=== PATIENT | female | born 1945 | race Caucasian/White ===

== ENCOUNTER 2016-12-25 13:23 | Emergency (ER) | payer MEDICARE, OTHER ==
[~2016-12-25] VITALS: Ht 165.1 cm; Wt 59.0 kg
[~2016-12-25 13:23] MED LIST: ADVANCED FIBER COMPL PO; ALEVE220 M2 PO; ASPIRIN81 MG PO; AUGMENTIN875TAB PO; B-1250 MCG PO; B12 LIQUID PO; BACLOFEN10 MG PO; CEFUROXIME500 MG PO; CIPROFLOXACN500 MG PO; CITRACAL + D3 MAXIMU PO; DIFLUCAN150 MG PO; ESTRACE2 M1 PO; FLEXERIL5 M1 PO; FLONASE NASAL50 MCG; FLORASTO1 PO; GARLIC2000 MG PO; GINKGO BILOB60 MG PO; GLUCOSAMINE1 TA1; HYDROCORTISO2.51 EX; LEVAQUIN750 MG PO; MEDDOSEPAK PO; MELOXICAM15 MG PO; METRONIDAZOL500 MG PO; MULTI VIT PO; OMEGA-3 FISH1000 MG PO; POTASSIUM GLUCO2 MEQ PO; PREDNISONE10 MG PO; PREVNAR 13 IM; PROTONIX40 M1 IV; PROTONIX40 M2 PO; RED YEAS1 PO; SUPER B-50 COMPLEX PO; VITAMIN E400 UNIT PO; XANAX0.25 MG PO; XGEVA SC
[2016-12-25] MEDS ORDERED: EC-NAPROSYN500 MG PO (14:00)
[2016-12-25 14:10] VITALS: BP 135/78
== END 2016-12-25 14:15 | disposition home or self-care (01) ==
LOC: ED 13:23
DX: M70.22 Olecranon bursitis, left elbow (principal); M41.9 Scoliosis, unspecified; M19.90 Unspecified osteoarthritis, unspecified site; M81.0 Age-related osteoporosis without current pathological fracture; F17.210 Nicotine dependence, cigarettes, uncomplicated

== ENCOUNTER 2017-07-28 12:54 | Emergency (ER) | payer MEDICARE, OTHER ==
[~2017-07-28] VITALS: Ht 165.1 cm; Wt 50.0 kg
[~2017-07-28 12:54] MED LIST changes: +EC-NAPROSYN500 MG PO; -GLUCOSAMINE1 TA1; +GLUCOSAMINE1 TA1 PO
[2017-07-28 14:26] LABS: HEMATOCRIT 48.1 % (37.0-47.0); HEMOGLOBIN 16.1 g/dl (12.0-16.0); IMMATURE GRANULOCYTES 0.5 % (0.0-1.0); MEAN CELL VOLUME 102.1 fL CALC (80.0-100.0); MEAN CORPUSCULAR HGB 34.2 pG CALC (26.0-32.0); MEAN CORPUSCULAR HGB CONC 33.5 g/L CALC (32.0-36.0); NEUT# 9.88 thou/uL (2.00-7.15); RED BLOOD COUNT 4.71 mill/uL (4.20-5.60); RED CELL DISTRI WIDTH 12.5 % (11.5-15.5)
[2017-07-28] MEDS ORDERED: TIZANIDINE HCL2 M1 PO (15:07)
[2017-07-28 15:17] LABS: ANION GAP 15 (6-22 (CALC)); BUN 16 mg/dL (8-23); BUN/CREATININE RATIO 29 (12-20 (CALC)); CALCIUM 10.2 mg/dL (8.4-10.2); CARBON DIOXIDE 29 mmol/l (22-30); CHLORIDE 103 mmol/l (95-108); CREATININE 0.5 mg/dL (0.5-1.0); GFR > 60 ML/MIN (>=60 (CALC)); GFR FOR AFR.AMER. > 60 ML/MIN (>=60 (CALC)); GLUCOSE 118 mg/dL (82-115); POTASSIUM 4.5 mmol/l (3.5-5.1); SODIUM 142 mmol/l (137-146)
[2017-07-28 15:56] VITALS: BP 118/64
== END 2017-07-28 15:55 | disposition home or self-care (01) ==
LOC: ED 12:54
PROVIDERS: Family Medicine
DX: R07.89 Other chest pain (principal); W01.198A Fall on same level from slipping, tripping and stumbling with subsequent striking against other object, initial encounter; Y93.89 Activity, other specified; Y92.007 Garden or yard of unspecified non-institutional (private) residence as the place of occurrence of the external cause

== ENCOUNTER 2017-08-22 06:50 | Emergency (ER) | payer MEDICARE, OTHER ==
[~2017-08-22] VITALS: Ht 165.1 cm; Wt 70.0 kg
[~2017-08-22 06:50] MED LIST changes: +TIZANIDINE HCL2 M1 PO
[2017-08-22 07:10] VITALS: BP 141/72
[2017-08-22] MEDS ORDERED: RED YEAST RICE600 MG PO (07:25)
[2017-08-22] MEDS ORDERED: SLO-NIACIN500 MG PO (07:29)
[2017-08-22 08:05] LABS: HEMATOCRIT 52.3 % (37.0-47.0); HEMOGLOBIN 17.6 g/dl (12.0-16.0); IMMATURE GRANULOCYTES 0.2 % (0.0-1.0); MEAN CELL VOLUME 102.3 fL CALC (80.0-100.0); MEAN CORPUSCULAR HGB 34.4 pG CALC (26.0-32.0); MEAN CORPUSCULAR HGB CONC 33.7 g/L CALC (32.0-36.0); NEUT# 5.31 thou/uL (2.00-7.15); RED BLOOD COUNT 5.11 mill/uL (4.20-5.60); RED CELL DISTRI WIDTH 12.9 % (11.5-15.5)
[2017-08-22 08:21] LABS: ALBUMIN 4.5 g/dL (3.2-5.0); ALKALINE PHOSPHATASE 102 u/l (38-126); ANION GAP 16 (6-22 (CALC)); BILIRUBIN, TOTAL 0.8 mg/dL (0.0-1.4); BUN 12 mg/dL (8-23); BUN/CREATININE RATIO 22 (12-20 (CALC)); CARBON DIOXIDE 29 mmol/l (22-30); CHLORIDE 103 mmol/l (95-108); CREATININE 0.5 mg/dL (0.5-1.0); GFR > 60 ML/MIN (>=60 (CALC)); GFR FOR AFR.AMER. > 60 ML/MIN (>=60 (CALC)); LIPASE 62 u/l (23-300); POTASSIUM 4.5 mmol/l (3.5-5.1); SGOT/AST 33 u/l (9-36); SGPT/ALT 23 u/l (11-66); SODIUM 143 mmol/l (137-146); TOTAL PROTEIN 7.6 g/dL (6.3-8.2)
[2017-08-22 08:38] LABS: URINE BILIRUBIN - DIPSTICK NEGATIVE (NEGATIVE); URINE BLOOD DIPSTICK NEGATIVE (NEGATIVE); URINE COLOR YELLOW; URINE GLUCOSE - DIPSTICK NEGATIVE (NEGATIVE); URINE KETONE NEGATIVE (NEGATIVE); URINE LEUK ESTERASE NEGATIVE (NEGATIVE); URINE NITRITE - DIPSTICK NEGATIVE (Negative); URINE PROTEIN - DIPSTICK NEGATIVE (NEG-TRACE); URINE UROBILINOGEN - DIPSTICK 0.2 E.U./dL (0.2)
[2017-08-22 08:39] LABS: URINE CLARITY CLEAR
[2017-08-22] MEDS ORDERED: MOTRIN400 MG PO (09:19)
== END 2017-08-22 09:31 | disposition home or self-care (01) ==
LOC: ED 06:50
PROVIDERS: Family Medicine
DX: R07.81 Pleurodynia (principal); M19.90 Unspecified osteoarthritis, unspecified site; J98.4 Other disorders of lung; F17.210 Nicotine dependence, cigarettes, uncomplicated
CPT/HCPCS: Q9967

== ENCOUNTER 2018-05-23 06:27 | Day surgery (SDC) | payer MEDICARE, OTHER ==
[~2018-05-23 06:27] MED LIST changes: +FISH OIL1 CAP PO; +MOTRIN400 MG PO; +MULTI FOR HER PO; +PROAIR HFA108 MCG/AC PO; +PROBIOTI2 PO; +RED YEAST RICE600 MG PO; +SLO-NIACIN500 MG PO; +SYMBICORT1 AE1 IN
[2018-05-23] MEDS ORDERED: TYLENOL325 MG PO (07:02)
[2018-05-23 08:01] VITALS: BP 135/64
== END 2018-05-23 08:40 | disposition home or self-care (01) ==
LOC: ENDO 06:27 → ORM 07:00 → ENDO 07:00
PROVIDERS: ATTEND Surgery
PROC: 0DJD8ZZ Inspection of Lower Intestinal Tract, Via Natural or Artificial Opening Endoscopic (ICD-10-PCS; principal; 2018-05-23)
PROC: 0DJ08ZZ Inspection of Upper Intestinal Tract, Via Natural or Artificial Opening Endoscopic (ICD-10-PCS; 2018-05-23)
DX: Z12.11 Encounter for screening for malignant neoplasm of colon (principal); K21.9 Gastro-esophageal reflux disease without esophagitis; Z90.49 Acquired absence of other specified parts of digestive tract
CPT/HCPCS: 43235; G0121

== ENCOUNTER 2021-01-30 17:55 | Emergency (ER) | payer MEDICARE, OTHER ==
[~2021-01-30] VITALS: Ht 162.6 cm; Wt 64.0 kg
[~2021-01-30 17:55] MED LIST changes: +TYLENOL325 MG PO
[2021-01-30] MEDS ORDERED: SINGULAIR10 MG PO (18:44)
[2021-01-30] MEDS ORDERED: BUSPIRONE5 MG PO (18:45)
[2021-01-30] MEDS ORDERED: SPIRIVA HANDIHALER IN (18:46)
[2021-01-30 20:05] LABS: HEMOGLOBIN 13.5 g/dl (12.0-16.0); IMMATURE GRANULOCYTES 0.1 % (0.0-5.0); MEAN CELL VOLUME 99.8 fL CALC (80.0-100.0); MEAN CORPUSCULAR HGB 32.8 pG CALC (26.0-32.0); MEAN CORPUSCULAR HGB CONC 32.9 g/dL CAL (32.0-36.0); NEUT# 3.94 thou/uL (2.00-7.15); RED BLOOD COUNT 4.11 mill/uL (4.20-5.60); RED CELL DISTRI WIDTH 12.5 % (11.5-15.5)
[2021-01-30 20:21] LABS: ALBUMIN 4.1 g/dL (3.2-5.0); ALKALINE PHOSPHATASE 70 u/l (38-126); AMYLASE 92 u/l (30-110); ANION GAP 13 (6-22 (CALC)); BILIRUBIN, TOTAL 0.4 mg/dL (0.0-1.4); BUN 23 mg/dL (8-23); BUN/CREATININE RATIO 35 (12-20 (CALC)); CARBON DIOXIDE 25 mmol/l (22-30); CHLORIDE 103 mmol/l (95-108); CPK 114 u/l (30-165); CREATININE 0.7 mg/dL (0.5-1.0); GFR > 60 ML/MIN (>=60 (CALC)); GFR FOR AFR.AMER. > 60 ML/MIN (>=60 (CALC)); LIPASE 71 u/l (23-300); POTASSIUM 4.5 mmol/l (3.5-5.1); SGOT/AST 50 u/l (9-36); SODIUM 136 mmol/l (137-146); TOTAL PROTEIN 7.5 g/dL (6.3-8.2)
[2021-01-30 21:18] VITALS: BP 160/71
== END 2021-01-30 21:29 | disposition home or self-care (01) ==
LOC: ED 17:55
PROVIDERS: Family Medicine
DX: J43.9 Emphysema, unspecified (principal); K21.9 Gastro-esophageal reflux disease without esophagitis; F17.200 Nicotine dependence, unspecified, uncomplicated

== ENCOUNTER 2021-06-16 14:53 | Emergency (ER) | payer MEDICARE, OTHER ==
[~2021-06-16] VITALS: Ht 162.6 cm; Wt 75.0 kg
[~2021-06-16 14:53] MED LIST changes: +BUSPIRONE5 MG PO; +SINGULAIR10 MG PO; +SPIRIVA HANDIHALER IN
[2021-06-16 19:45] VITALS: BP 145/79
== END 2021-06-16 19:45 | disposition home or self-care (01) ==
LOC: ED 14:53
DX: S32.592A Other specified fracture of left pubis, initial encounter for closed fracture (principal); X58.XXXA Exposure to other specified factors, initial encounter

== ENCOUNTER 2021-06-20 10:43 | Observation (INO) | payer MEDICARE, OTHER ==
[~2021-06-20] VITALS: Ht 160 cm; Wt 75.0 kg
[2021-06-20] MEDS ORDERED: ALPRAZOLAM0.25 MG PO (11:33)
[2021-06-20] MEDS ORDERED: PROAIR HFA108 MCG/AC IN (11:34)
[2021-06-20] MEDS ORDERED: MULTI VIT PO (11:36)
[2021-06-20] MEDS ORDERED: TRAMADOL HYDROC50 M1 PO (11:37)
[2021-06-20 12:33] LABS: HEMATOCRIT 39.9 % (37.0-47.0); HEMOGLOBIN 13.2 g/dl (12.0-16.0); IMMATURE GRANULOCYTES 0.1 % (0.0-5.0); MEAN CELL VOLUME 100.8 fL CALC (80.0-100.0); MEAN CORPUSCULAR HGB 33.3 pG CALC (26.0-32.0); MEAN CORPUSCULAR HGB CONC 33.1 g/dL CAL (32.0-36.0); NEUT# 5.44 thou/uL (2.00-7.15); RED BLOOD COUNT 3.96 mill/uL (4.20-5.60); RED CELL DISTRI WIDTH 12.3 % (11.5-15.5)
[2021-06-20 12:47] LABS: ALBUMIN 3.6 g/dL (3.2-5.0); ALKALINE PHOSPHATASE 135 u/l (38-126); ANION GAP 9 (6-22 (CALC)); BILIRUBIN, TOTAL 0.4 mg/dL (0.0-1.4); BUN 12 mg/dL (8-23); BUN/CREATININE RATIO 23 (12-20 (CALC)); CARBON DIOXIDE 33 mmol/l (22-30); CHLORIDE 102 mmol/l (95-108); CREATININE 0.5 mg/dL (0.5-1.0); GFR > 60 ML/MIN (>=60 (CALC)); GFR FOR AFR.AMER. > 60 ML/MIN (>=60 (CALC)); POTASSIUM 3.9 mmol/l (3.5-5.1); SGOT/AST 25 u/l (9-36); SODIUM 139 mmol/l (137-146); TOTAL PROTEIN 7.1 g/dL (6.3-8.2)
[2021-06-20 13:38] LABS: URINE BILIRUBIN - DIPSTICK NEGATIVE (NEGATIVE); URINE BLOOD DIPSTICK NEGATIVE (NEGATIVE); URINE COLOR YELLOW; URINE GLUCOSE - DIPSTICK NEGATIVE (NEGATIVE); URINE KETONE NEGATIVE (NEGATIVE); URINE LEUK ESTERASE NEGATIVE (NEGATIVE); URINE PROTEIN - DIPSTICK NEGATIVE (NEG-TRACE); URINE UROBILINOGEN - DIPSTICK 0.2 E.U./dL (0.2)
[2021-06-20 13:40] LABS: URINE NITRITE - DIPSTICK NEGATIVE (Negative)
[2021-06-20 14:57] VITALS: BP 133/64
[2021-06-20 19:30] VITALS: BP 106/51
[2021-06-21 04:00] VITALS: BP 124/52
[2021-06-21 05:52] LABS: HEMOGLOBIN 12.5 g/dl (12.0-16.0); MEAN CORPUSCULAR HGB 32.9 pG CALC (26.0-32.0); MEAN CORPUSCULAR HGB CONC 32.9 g/dL CAL (32.0-36.0); RED BLOOD COUNT 3.8 mill/uL (4.20-5.60); RED CELL DISTRI WIDTH 12.1 % (11.5-15.5)
[2021-06-21 06:07] LABS: ANION GAP 8 (6-22 (CALC)); BUN 18 mg/dL (8-23); BUN/CREATININE RATIO 31 (12-20 (CALC)); CARBON DIOXIDE 31 mmol/l (22-30); CHLORIDE 103 mmol/l (95-108); CREATININE 0.6 mg/dL (0.5-1.0); GFR > 60 ML/MIN (>=60 (CALC)); GFR FOR AFR.AMER. > 60 ML/MIN (>=60 (CALC)); MAGNESIUM 1.7 mg/dL (1.6-2.3); POTASSIUM 4.5 mmol/l (3.5-5.1); SODIUM 138 mmol/l (137-146)
[2021-06-21 07:51] VITALS: BP 139/65
[2021-06-21 07:52] VITALS: BP 125/63
[2021-06-21 10:47] VITALS: BP 135/74
[2021-06-21 14:07] VITALS: BP 124/79
[2021-06-21 19:00] VITALS: BP 121/68
[2021-06-22 04:00] VITALS: BP 103/65
[2021-06-22 08:00] VITALS: BP 97/85
[2021-06-22] MEDS ORDERED: HYDROCO/APAP1 TA9 PO (10:51)
[2021-06-22] MEDS ORDERED: LYRICA50 MG PO (10:51)
== END 2021-06-22 14:35 ==
LOC: ED 10:43 → ED-I 12:50 → ED 14:22 → MS2 14:23
PROVIDERS: Family Medicine; ADMIT Hospitalist; ATTEND Hospitalist
DX: M25.551 Pain in right hip (principal); J43.9 Emphysema, unspecified; F41.9 Anxiety disorder, unspecified; K21.9 Gastro-esophageal reflux disease without esophagitis; M81.0 Age-related osteoporosis without current pathological fracture; M19.90 Unspecified osteoarthritis, unspecified site; Z20.822 Contact with and (suspected) exposure to COVID-19
CPT/HCPCS: J1650

== ENCOUNTER 2022-10-28 18:27 | Emergency (ER) | payer MEDICARE, OTHER ==
[2022-10-28] VITALS (14 sets, daily range): BP systolic 129–173; BP diastolic 60–92
[~2022-10-28] VITALS: Ht 160 cm; Wt 69.8 kg
[~2022-10-28 18:27] MED LIST changes: +ALPRAZOLAM0.25 MG PO; +HYDROCO/APAP1 TA9 PO; +LYRICA50 MG PO; +PROAIR HFA108 MCG/AC IN; +TRAMADOL HYDROC50 M1 PO
[2022-10-28] MEDS ORDERED: ULTRAM50 MG PO (21:54)
== END 2022-10-28 22:28 | disposition home or self-care (01) ==
LOC: ED 18:27
DX: S82.092A Other fracture of left patella, initial encounter for closed fracture (principal); W01.0XXA Fall on same level from slipping, tripping and stumbling without subsequent striking against object, initial encounter; Y92.009 Unspecified place in unspecified non-institutional (private) residence as the place of occurrence of the external cause

== ENCOUNTER 2023-01-18 07:56 | Emergency (ER) | payer MEDICARE, OTHER ==
[2023-01-18] VITALS (11 sets, daily range): BP systolic 133–187; BP diastolic 57–94
[~2023-01-18] VITALS: Ht 160 cm; Wt 64.0 kg
[~2023-01-18 07:56] MED LIST changes: +ULTRAM50 MG PO
[2023-01-18] MEDS ORDERED: LOSARTAN POTASS25 MG PO (08:23)
[2023-01-18 08:34] LABS: BASO% 0.2 % (0-3); EOS% 2.9 % (0-8); HEMATOCRIT 44.7 % (37.0-47.0); HEMOGLOBIN 14.3 g/dl (12.0-16.0); IMMATURE GRANULOCYTES 0.1 % (0.0-5.0); LYMPH% 32.3 % (15-41); MEAN CELL VOLUME 101.8 fL CALC (80.0-100.0); MEAN CORPUSCULAR HGB 32.6 pG CALC (26.0-32.0); MONO% 7.5 % (2-13); NEUT# 5.28 thou/uL (2.00-7.15); RED BLOOD COUNT 4.39 mill/uL (4.20-5.60); RED CELL DISTRI WIDTH 12.3 % (11.5-15.5)
[2023-01-18 08:48] LABS: ALBUMIN 4.3 g/dL (3.2-5.0); ALKALINE PHOSPHATASE 79 u/l (38-126); ANION GAP 13 (6-22 (CALC)); BUN 15 mg/dL (8-23); BUN/CREATININE RATIO 24 (12-20 (CALC)); CARBON DIOXIDE 28 mmol/l (22-30); CHLORIDE 100 mmol/l (95-108); CREATININE 0.6 mg/dL (0.5-1.0); GFR FOR AFR.AMER. > 60 ML/MIN (>=60 (CALC)); GFR OTHER RACES > 60 ML/MIN (>=60 (CALC)); POTASSIUM 4.6 mmol/l (3.5-5.1); SGOT/AST 37 u/l (9-36); SODIUM 136 mmol/l (137-146); TOTAL PROTEIN 7.6 g/dL (6.3-8.2)
[2023-01-18 08:49] LABS: BILIRUBIN, TOTAL 0.6 mg/dL (0.02-1.3)
== END 2023-01-18 12:31 | disposition home or self-care (01) ==
LOC: ED 07:56
PROVIDERS: Family Medicine
DX: M54.9 Dorsalgia, unspecified (principal); R07.9 Chest pain, unspecified; I10 Essential (primary) hypertension

== ENCOUNTER 2023-09-13 15:43 | Emergency (ER) | payer MEDICARE, OTHER ==
[~2023-09-13] VITALS: Ht 160 cm; Wt 68.0 kg
[2023-09-13] VITALS (14 sets, daily range): BP systolic 123–171; BP diastolic 61–86
[~2023-09-13 15:43] MED LIST changes: +LOSARTAN POTASS25 MG PO
[2023-09-13 16:10] LABS: BASO% 0.3 % (0-3); EOS% 0.1 % (0-8); HEMATOCRIT 41.7 % (37.0-47.0); HEMOGLOBIN 13.3 g/dl (12.0-16.0); IMMATURE GRANULOCYTES 0.1 % (0.0-5.0); MEAN CORPUSCULAR HGB 32.5 pG CALC (26.0-32.0); MEAN CORPUSCULAR HGB CONC 31.9 g/dL CAL (32.0-36.0); MONO% 7.7 % (2-13); NEUT# 5.27 thou/uL (2.00-7.15); NEUT% 70.8 % (42-76); RED BLOOD COUNT 4.09 mill/uL (4.20-5.60); RED CELL DISTRI WIDTH 12.4 % (11.5-15.5)
[2023-09-13 16:31] LABS: ALBUMIN 4.2 g/dL (3.2-5.0); ALKALINE PHOSPHATASE 59 u/l (38-126); ANION GAP 10 (6-22 (CALC)); BUN 14 mg/dL (8-23); BUN/CREATININE RATIO 27 (12-20 (CALC)); CARBON DIOXIDE 29 mmol/l (22-30); CHLORIDE 104 mmol/l (95-108); CREATININE 0.5 mg/dL (0.5-1.0); GFR FOR AFR.AMER. > 60 ML/MIN (>=60 (CALC)); GFR OTHER RACES > 60 ML/MIN (>=60 (CALC)); POTASSIUM 4.7 mmol/l (3.5-5.1); SGOT/AST 33 u/l (9-36); SODIUM 139 mmol/l (137-146)
[2023-09-13 16:39] LABS: BILIRUBIN, TOTAL 0.2 mg/dL (0.02-1.3)
[2023-09-13] MEDS ORDERED: ACETAMINOPHEN 500 MG TAB PO ONE (18:45)
== END 2023-09-13 19:14 | disposition home or self-care (01) ==
LOC: ED 15:43
PROVIDERS: Nurse Practitioner
DX: R06.02 Shortness of breath (principal); F41.9 Anxiety disorder, unspecified; K21.9 Gastro-esophageal reflux disease without esophagitis